=== PATIENT | male | born 1970 | race Caucasian/White ===

== ENCOUNTER 2020-10-05 08:05 | Emergency (ER) | payer MEDICARE ==
[~2020-10-05] VITALS: Ht 180.3 cm; Wt 138.6 kg
[2020-10-05] MEDS ORDERED: GLUCOPHAGE1000 MG PO (08:36)
[2020-10-05] MEDS ORDERED: ZESTRIL5 M1 PO (08:36)
[2020-10-05] MEDS ORDERED: ZOCOR40 M1 PO (08:36)
[2020-10-05] MEDS ORDERED: FISH OIL 1,001000 MG PO (08:37)
[2020-10-05] MEDS ORDERED: MULTIPLE VITAMI1 TA1 PO (08:37)
[2020-10-05] MEDS ORDERED: CHLORPROMAZINE200 M1 PO (08:37)
[2020-10-05] MEDS ORDERED: LANTUS SOLOS100 U/ML SQ (08:38)
[2020-10-05] MEDS ORDERED: REMERON15 MG PO (08:38)
[2020-10-05 09:05] LABS: URINE APPEARANCE CLOUDY; URINE BILIRUBIN NEGATIVE (NEGATIVE); URINE BLOOD 250 ery/uL (NEGATIVE); URINE COLOR YELLOW; URINE KETONE 2+ (NEGATIVE); URINE NITRATE POSITIVE (NEGATIVE); URINE PROTEIN(semi-quant) 1+ mg/dL (NEGATIVE); URINE UROBILINOGEN NORMAL (NORMAL)
[2020-10-05 09:06] LABS: URINE LEUKOCYTE ESTERASE 2+ (NEGATIVE); URINE WBC >50 /hpf (0-3)
[2020-10-05 09:12] LABS: HEMATOCRIT 40.2 % (42.0-52.0); HEMOGLOBIN 13.8 g/dL (13.5-18.0); MEAN CELL VOLUME 88 fl (78-100); MEAN CORPUSCULAR HEMOGLOBIN 30 pg (27-31); MEAN CORPUSCULAR HGB CONC 34 g/dL (33-37); MEAN PLATELET VOLUME 10.2 fl (7.4-10.4); PLATELET COUNT 168 K/mm3 (130-400); RED BLOOD COUNT 4.59 M/mm3 (4.20-5.60); RED CELL DISTRIBUTION WIDTH 13.1 % (11.5-14.5)
[2020-10-05 09:26] LABS: ALBUMIN 3.5 g/dL (3.5-5.0); POTASSIUM 3.7 mmol/L (3.5-5.1)
[2020-10-05 09:27] LABS: CALCIUM 8.4 mg/dL (8.3-10.5)
[2020-10-05 09:28] LABS: TOTAL PROTEIN 7.3 g/dL (6.4-8.3)
[2020-10-05 09:30] LABS: TOTAL BILIRUBIN 0.6 mg/dL (0.2-1.2)
[2020-10-05 09:43] LABS: LYMPHOCYTE 8 % (20-51); MONOCYTE 6 % (3-10); NEUTROPHILS 85 % (42-75)
[2020-10-05] MEDS ORDERED: CEFUROXIME AXE500 MG PO (11:24)
[2020-10-05 12:20] VITALS: BP 102/71
== END 2020-10-05 11:40 | disposition home or self-care (01) ==
LOC: ED 08:05
PROVIDERS: Physician Assistant
DX: N39.0 Urinary tract infection, site not specified (principal); F20.9 Schizophrenia, unspecified; N50.9 Disorder of male genital organs, unspecified; Z85.51 Personal history of malignant neoplasm of bladder; Z85.528 Personal history of other malignant neoplasm of kidney; I10 Essential (primary) hypertension; E11.9 Type 2 diabetes mellitus without complications; E78.5 Hyperlipidemia, unspecified; F31.9 Bipolar disorder, unspecified; I25.2 Old myocardial infarction; F17.210 Nicotine dependence, cigarettes, uncomplicated; Z79.4 Long term (current) use of insulin; Z88.5 Allergy status to narcotic agent; Z88.8 Allergy status to other drugs, medicaments and biological substances
CPT/HCPCS: J1885; J7030; Q9967